=== PATIENT | male | born 1955 | race Caucasian/White ===

== ENCOUNTER → 2025-01-29 | Outpatient (CLI) | payer MEDICARE, BC, SELFPAY ==
[2025-01-29 11:09] LABS: Collection Type, Urine Catheter; Squamous Epithelial Cell,Urine 0 /hpf (0-5)
[2025-01-29 11:52] LABS: Bilirubin,Urine Negative (Negative); Blood,Urine Negative (Negative); Clarity,Urine Clear (Clear/Hazy); Color,Urine Yellow (Lt Yel-Yel); Culture Indicated,Urine Not Indicated; Glucose, Urine Negative (Negative); Ketones,Urine Negative (Negative); Leukocyte Esterase,Urine Negative (Negative); Nitrite,Urine Negative (Negative); Protein,Urine Negative (Neg - Trace); RBC,Urine 2 /hpf (0-3); Specific Gravity,Urine 1.018 (1.001-1.035); Urobilinogen,Urine Negative mg/dL (0.0-1.0); WBC,Urine < 1 /hpf (0-5)
[2025-01-29 11:53] LABS: Basophils % (Auto) 0 % (0-2.5); Eosinophils # (Auto) 0.1 Thou/mm3 (0.0-0.5); Eosinophils % (Auto) 1 % (0-10); Hemoglobin 14.6 g/dL (13.5-16.0); Immature Granulocytes % (Auto) 0 % (0-0); Immature Granulocytes Auto 0.01 Thou/mm3 (0.00-0.00); Lymphocytes # (Auto) 0.8 Thou/mm3 (1.0-4.8); Lymphocytes % (Auto) 17 % (10-50); Mean Corpuscular HGB Conc 37.4 g/dl (31.0-37.0); Mean Corpuscular Hemoglobin 33.9 pg (25.0-35.0); Mean Corpuscular Volume 91 fL (80-100); Monocytes # (Auto) 0.7 Thou/mm3 (0.0-0.8); Monocytes % (Auto) 15 % (0-12); Neutrophils % (Auto) 66 % (37-80); Nucleated Red Blood Cell % 0 /100 WBC (0); Platelet Count 81 Thou/mm3 (140-440); Red Blood Count 4.31 Miln/mm3 (4.50-5.90); White Blood Count 4.6 Thou/mm3 (3.8-10.6)
[2025-01-29 12:14] LABS: Alanine Aminotransferase 48 U/L (10-49); Albumin, Serum 4.2 gm/dL (3.4-4.8); Albumin/Globulin Ratio 1.7 (1.2-2.2); Alkaline Phosphatase 49 U/L (46-116); Anion Gap 12 (7-16); Aspartate Amino Transferase 42 U/L (0-34); BUN/Creatinine Ratio 15 Ratio (12-20); Bilirubin,Total 0.7 mg/dL (0.3-1.2); Blood Urea Nitrogen 19 mg/dL (9-23); Calcium 8.8 mg/dL (8.3-10.6); Calcium (Corrected) 8.8 mg/dL (8.5-10.1); Carbon Dioxide 27.3 mMol/L (20.0-31.0); Cardiac Risk Estimate 3.5 RATIO (4.0-6.7); Chloride 100 mMol/L (98-107); Cholesterol 186 mg/dL (132-200); Creatinine (Component) 1.3 mg/dL (0.6-1.3); Globulin 2.5 gm/dL (2.3-3.5); Glucose 109 mg/dL (74-106); HDL Cholesterol 53 mg/dL (40-60); LDL Cholesterol,Calculated 82 mg/dL (0-130); Osmolality,Calculated 280 (275-295); Potassium 4.1 mMol/L (3.4-5.1); Sodium 139 mMol/L (136-145); Thyroid Stimulating Hormone 2.66 uIU/mL (0.55-4.78); Total Protein 6.7 gm/dL (5.7-8.2); Triglycerides 256 mg/dL (30-150); Vitamin D 25 Hydroxy Total 42.7 ng/mL (7.3-40.2); eGFR 60 See Note
[2025-01-29 12:15] LABS: Prostate Specific Antigen 0.49 ng/mL (0-4.00)
[2025-01-29 12:41] LABS: Glucose Estimated Average 105 mg/dL (80-131); Hemoglobin A1C 5.3 % Hgb (4.8-6.0)
== END | disposition home or self-care (01) ==
PROVIDERS: PCP Family Medicine; Referring Provider Registered Nurse; Visit Provider Registered Nurse
DX: Z00.00 Encounter for general adult medical examination without abnormal findings (principal); I10 Essential (primary) hypertension; E78.2 Mixed hyperlipidemia; N40.1 Benign prostatic hyperplasia with lower urinary tract symptoms
CPT/HCPCS: 36415; 80053; 80061; 81001; 82306; 83036; 84153; 84443; 85025

== ENCOUNTER → 2025-01-29 | Outpatient (CLI) | payer MEDICARE, BC, SELFPAY ==
--- NOTE | 2025-01-29 13:48 | XR_ITS ---
Shoulder bilateral, 6 views Technique: Shoulder AP internal rotation, AP external rotation, Y view each shoulder total 6 views Exam date and time :January 29, 2025 1358 hours INDICATIONS: Bilateral shoulder pain beginning 2018. FINDINGS: Severe osteopenia Bilateral moderate to advanced osteoarthritis glenohumeral joints Right shoulder calcific tendinitis Within the screws right humeral head IMPRESSION: Bilateral moderate to advanced osteoarthritis glenohumeral and acromioclavicular joints Right shoulder calcific tendinitis
== END | disposition home or self-care (01) ==
PROVIDERS: PCP Family Medicine; Referring Provider Registered Nurse; Visit Provider Registered Nurse
DX: M19.012 Primary osteoarthritis, left shoulder (principal); M19.011 Primary osteoarthritis, right shoulder; M75.31 Calcific tendinitis of right shoulder
CPT/HCPCS: 73030

== ENCOUNTER 2025-02-05 06:55 | Emergency (ER) | payer MEDICARE, BC, SELFPAY ==
[2025-02-05] VITALS (38 sets, daily range): BP systolic 75–135; BP diastolic 49–83; PULSE 50–86; RESP 12–25; TEMP 36.8–38; O2SAT 89–99; BMI 35.7
--- NOTE | 2025-02-05 07:16 | EDRME_ITS ---
Rapid Medical Screening Exam [facility] Arrival date/time: 02/05/25 06:55 69-year-old male with a history of hypertension presents to the emergency room with a chief complaint of fevers x 1 week. Patient denies any URI signs or symptoms. Patient denies any abdominal pain chest pain nausea or vomiting. Patient states his only symptom has been a fever and has gotten up to 105.0 patient took Tylenol this morning. I have greeted and performed a focused initial assessment of this patient. A comprehensive ED assessment and evaluation of the patient, analysis of all test results, and completion of the medical decision making process will be conducted by additional ED providers. Chief Complaint: Fever Time Seen by Provider: 02/05/25 07:06 Vital signs: Vital Signs Temperature 100.4 F 02/05/25 07:11 Pulse Rate 86 02/05/25 07:11 Respiratory Rate 20 02/05/25 07:11 Blood Pressure 90/57 L 02/05/25 07:11 Pulse Oximetry (%) 95 02/05/25 07:11 Oxygen Delivery Method Room Air 02/05/25 07:11 Vital signs reviewed by provider: Yes
--- NOTE | 2025-02-05 07:16 | XR_ITS ---
Examination: PA lateral chest 2 views TECHNIQUE: Upright PA lateral chest 2 views Date and time: February 05, 2025 0902 hours Comparison March 22, 2018 INDICATIONS: Coughing chest pain fever beginning one week ago FINDINGS: Atelectasis versus early pneumonia left base Right lung clear Normal heart size IMPRESSION: Atelectasis versus pneumonia left base, clinical correlation advised
[2025-02-05] MEDS: IBUPROFEN TAB 600 MG TABLET PO (07:26)
[2025-02-05 07:55] LABS: Lactate (Lactic Acid) 2.4 mMol/L (0.4-2.0)
[2025-02-05 07:58] LABS: Basophils % (Auto) 1 % (0-2.5); Eosinophils % (Auto) 1 % (0-10); Hematocrit 35.5 % (41.0-53.0); Immature Granulocytes % (Auto) 0 % (0-0); Immature Granulocytes Auto 0.01 Thou/mm3 (0.00-0.00); Lymphocytes # (Auto) 0.7 Thou/mm3 (1.0-4.8); Lymphocytes % (Auto) 12 % (10-50); Mean Corpuscular HGB Conc 36.6 g/dl (31.0-37.0); Mean Corpuscular Hemoglobin 33.2 pg (25.0-35.0); Mean Corpuscular Volume 91 fL (80-100); Monocytes # (Auto) 0.7 Thou/mm3 (0.0-0.8); Monocytes % (Auto) 12 % (0-12); Neutrophils # (Auto) 4.5 Thou/mm3 (1.8-7.7); Neutrophils % (Auto) 75 % (37-80); Nucleated Red Blood Cell % 0 /100 WBC (0); RDW Standard Deviation 41.6 fL (35.1-43.9); Red Blood Count 3.92 Miln/mm3 (4.50-5.90)
[2025-02-05 08:15] LABS: Platelet Count 66 Thou/mm3 (140-440)
[2025-02-05 08:19] LABS: Slide Review Platelets confirmed
--- NOTE | 2025-02-05 08:19 | EDNOTE_ITS ---
ED Fever RME/HPI General Chief Complaint: Fever Stated Complaint: FEVER Time Seen by Provider: 02/05/25 07:06 Arrival date/time: 02/05/25 06:55 RME / HPI RME / HPI Narrative: 02/05/25 06:55 69-year-old male with a history of hypertension presents to the emergency room with a chief complaint of fevers x 1 week. Patient denies any URI signs or symptoms. Patient denies any abdominal pain chest pain nausea or vomiting. Patient states his only symptom has been a fever and has gotten up to 105.0 patient took Tylenol this morning. I have greeted and performed a focused initial assessment of this patient. A comprehensive ED assessment and evaluation of the patient, analysis of all test results, and completion of the medical decision making process will be conducted by additional ED providers. DR. LICHA FUENTES ED EVALUATION: 69 year old male presents to the Emergency Department with complaint of fever onset 1 week with associated diaphoresis. Symptoms are moderate. Patient states he has been taking Tylenol for his fever. Other associated symptoms include feeling generalized weakness. Patient denies any chest pain, coughing or sore throat. No sick contacts at home. No abdominal pain, nausea, or vomiting. No decreased in appetite. PMHx: Hypertension, has lidocaine patches for shoulder pain, colorectal cancer in remission since 2008 with colon resection at [facility] and has both chemotherapy and radiation. Social Hx: No tobacco, alcohol, or substance use. Related Data Previous Rx's ?Medication ?Instructions ?Recorded Morphine Sulfate * (MORPHINE 15 mg PO Q6H PRN PAIN (SE GIA) #20 04/14/17 SULFATE *) tabs naloxone 4 mg/actuation nasal 1 spray intranasal Q1MIN PRN 04/04/19 spray (Narcan) opioid overdose #4 ea amoxicillin 875 mg-potassium 1 tab PO Q12H 10 days #20 tabs 02/05/25 clavulanate 125 mg tablet Allergies Allergy/AdvReac Type Severity Reaction Status Date / Time No Known Allergies Allergy Verified 02/05/25 06:58 Review of Systems Review of Systems Systems Reviewed: All systems reviewed, normal except as documented Narrative Review of Systems: GEN: + fever, no chills, no weight loss, + diaphoresis EYES: No discharge, no visual changes, no pain HEENT: No ear pain, no congestion, no sore throat PULM: No shortness of breath, no cough, no congestion CV: No chest pain, no dyspnea on exertion, no palpitations GI: No nausea, no vomiting, no diarrhea, no pain, no constipation : No frequency, no urgency and no dysuria MUSC/SKEL: No joint pain, no back pain SKIN: No rash PSYCH: No hallucinations, no depression HEME/LYMPH: No easy bleeding or bruising tendencies NEURO: + generalized weakness, no headache Past Medical History Past Medical History CARDIAC: Positive Hypercholesterolemia and Hypertension GASTROINTESTINAL: Positive Gastroesophageal Reflux Disease MUSCULOSKELETAL: Positive Arthritis and Fractures ENT: Positive Glaucoma PSYCHO/SOCIAL: Positive Depression and Anxiety Social History SMOKING STATUS: Former smoker SUBSTANCE USE: does not use ALCOHOL: Never Physical Exam Narrative Physical exam: GENERAL APPEARANCE: AxOx4, generally well-appearing, no acute distress, diaphoretic HEENT: NC, AT. MMM. EOMI, clear conjunctiva, oropharynx clear. NECK: Supple without lymphadenopathy. No stiffness or restricted ROM. HEART: Normal rate and regular rhythm, normal S1/S1, no m/r/g LUNGS: CTAB, moving air well. No crackles or wheezes are heard. ABDOMEN: Soft, nontender, nondistended with good bowel sounds heard. BACK: No midline C/T/L spine pain or deformity, No CVAT, no obvious deformity. EXTREMITIES: Without cyanosis, clubbing or edema. MUSCULOSKELETAL: FROM of all major joints, no chest tenderness NEUROLOGICAL: Grossly nonfocal. Alert and oriented, moving all 4 extremities. CN not formally tested but appear grossly intact. Skin: Warm and dry without any rash. Course Quality Measures none Orders Category Date Time Status Bedside COVID-19 Antigen Test NOW Care 02/05/25 07:16 Completed Bedside Influenza A&B Antigen Test NOW Care 02/05/25 07:16 Completed US gall bladder Stat Exams 02/05/25 09:16 Completed XR chest 2V Stat Exams 02/05/25 07:16 Completed Blood Culture (Lab) Stat Lab 02/05/25 08:09 Received CBC Stat Lab 02/05/25 07:48 Completed CMP [Comprehensive Metabolic Panel] Stat Lab 02/05/25 07:48 Completed Lactate (Lactic Acid) Stat Lab 02/05/25 07:48 Completed Lactic Acid, 3 HR Stat Lab 02/05/25 11:09 Completed Procalcitonin Stat Lab 02/05/25 07:48 Completed UA [Urinalysis] Stat Lab 02/05/25 09:27 Completed Urine Culture Stat Lab 02/05/25 09:27 Received Ibuprofen Tab [Motrin Tab] Med 02/05/25 07:16 Discontinued 600 mg PO X1 ONE Sodium Chloride 0.9% 1000 ml [Ns] 1,000 ml Med 02/05/25 08:18 Discontinued IV 999 mls/hr Sodium Chloride 0.9% 1000 ml [Ns] 1,000 ml Med 02/05/25 09:55 Discontinued IV 999 mls/hr Reevaluation(s) Reevaluation #1: Patient feels better now, he will follow as an outpatient for pneumonia. He is hungry, so after he eats he will do a road test and then be discharged. Time: 13:30 Reevaluation #2: Patient feels better and would like to go home. Road test passed after eating. I confirmed with the patient and he denies any chest pain or cough. Patient remains clinically stable throughout the emergency department visit. Re- assessment at the time of disposition demonstrates that the patient is in no acute distress. We reviewed all the results, analysis, and treatment plans. Patient is amenable to discharge. Strict return precautions were outlined. Clive foster was discharged in stable condition. Time: 14:30 Vital Signs Vital signs: Vital Signs Temperature 100.4 F 02/05/25 07:11 Pulse Rate 86 02/05/25 07:11 Respiratory Rate 20 02/05/25 07:11 Blood Pressure 90/57 L 02/05/25 07:11 Pulse Oximetry (%) 95 02/05/25 07:11 Oxygen Delivery Method Room Air 02/05/25 07:11 Fever MDM Narrative MDM Narrative:: ITamera am scribing for and in the presence of Dr. Staley. Patient data External records reviewed:: [facility] previous records (Reviewed last ED visit dated 04/04/19, discharged with the following: Acute hypokalemia) Clinical information provided by:: patient and spouse Social determinants that could affect healthcare access:: none Patient has the following chronic illnesses:: Hypertension, has lidocaine patches for shoulder pain, colorectal cancer in remission since 2008 with colon resection at [facility] and has both chemotherapy and radiation. How is presenting disease/condition affected by chronic disease/condition?: uneffected by Evaluation data The following diagnostics were reviewed and interpreted by me:: lab results and radiology exam(s) Lab and/or radiology exams considered but not ordered:: none Interpretation Summary: Procedure(s): XR chest 2V Accession Number(s): [id number] cc: Jeff Cevallos; Daniele Phan MD; Zena Billings NP~ Examination: PA lateral chest 2 views TECHNIQUE: Upright PA lateral chest 2 views Date and time: February 05, 2025 0902 hours Comparison March 22, 2018 INDICATIONS: Coughing chest pain fever beginning one week ago FINDINGS: Atelectasis versus early pneumonia left base Right lung clear Normal heart size IMPRESSION: Atelectasis versus pneumonia left base, clinical correlation advised Dictated By: Daniele Phan MD -- Procedure(s): US gall bladder Accession Number(s): [id number] cc: Feliciano Staley MD; Daniele Phan MD; Zena Patel NP~ Examination: Abdomen sonogram, Limited Date and time of exam: February 05, 2025 1251 hours INDICATIONS: Onset abdominal pain and fever beginning one week ago Technique: Real-time lópez scale transabdominal sonographic images of the upper abdomen obtained. Findings: 9 mm gallstone Gallbladder wall 0.3 cm no edema Common bile duct 0.6 cm no stones Pancreatic head prominent 3.7 cm Liver 21 cm fatty infiltration lobular contour Normal hepatopedal portal venous flow Patent IVC IMPRESSION: Cholelithiasis, negative for cholecystitis Pancreatic head measures prominent, 3.7 cm, clinical correlation advised Dictated By: Daniele Phan MD Medications / Prescriptions Medications or Prescriptions considered but not ordered:: none Medication administrations:: Medication Administration History Discontinued Medications Sodium Chloride (Ns) 1,000 mls @ 999 mls/hr IV .Q1H1M ONE Stop: 02/05/25 09:18 Last Infusion: 02/05/25 09:09 Dose: Infused Documented By: Admin: 02/05/25 08:30 Dose: 999 mls/hr Documented By: FAMILIA Sodium Chloride (Ns) 1,000 mls @ 999 mls/hr IV .Q1H1M ONE Stop: 02/05/25 10:55 Last Infusion: 02/05/25 12:11 Dose: Infused Documented By: Admin: 02/05/25 11:08 Dose: 999 mls/hr Documented By: SARAH Ibuprofen (Ibuprofen Tab 600 Mg Tablet) 600 mg PO X1 ONE Stop: 02/05/25 07:17 Last Admin: 02/05/25 07:26 Dose: 600 mg Documented By: DO see above Consultations Consultation(s) initiated? (list below): Yes Consultation #1 (Physician, Specialty, Details): Discussed test HPI, PMHx, lab, radiology results and/or management with Dr. Camargo. Patient can follow as an outpatient for pneumonia. Time: 13:30 Diagnosis Fever Differential Diagnosis: community acquired pneumonia, viral infection, sepsis and influenza Most likely diagnosis given after review of the tests above:: Pneumonia Dehydration Admission Indicated Admission indicated?: not indicated Admission Request Was there a request for admission?: No Disposition Plan Disposition Plan: Discharge Discharge Attestation Discharge Attestation: The patient and all family members were given an opportunity to ask questions and understood the discharge instructions. Discharge instructions specifically effects, indications for sooner follow up or return to the emergency department, and the expected course of current diagnosis. Patient condition: Stable Discharge Plan Plan Patient Disposition: HOME (Self Care) Prescriptions/Referrals Prescriptions/Med Rec: New amoxicillin-pot clavulanate 875-125 mg tablet 1 tab PO Q12H 10 Days Qty: 20 0RF No Action Morphine Sulfate * (MORPHINE SULFATE *) 15 MG tablet 15 mg PO Q6H PRN (Reason: PAIN (SEVERE)) Qty: 20 0RF Narcan 4 mg/actuation spray,non-aerosol 1 spray INTRANASAL Q1MIN PRN (Reason: opioid overdose) Qty: 4 1RF Rx Instructions: adm. 1 dose into ONE nostril; alternate nostrils w each dose until assist arrives Referrals: Zena Lubin NP [Primary Care Provider] - In 1 week Problem List Clinical Impression: Pneumonia, Dehydration Patient/Caregiver Discharge Instructions Education Materials: ED Dehydration (Adult), ED Pneumonia (Adult) Additional Instructions: Hold your blood pressure medicines for the next 2 days. Drink plenty of fluids and get plenty of rest. Follow-up with your primary doctor in 3 to 5 days for recheck. You can return to the emergency department sooner if symptoms worsen or if you notice any new, concerning issues. Print Language: Gabonese Stand Alone Forms: Antonella Award Info., Patient Portal Info Letter
[2025-02-05] MEDS: SODIUM CHLORIDE 0.9% 1000 ML 1,000 ML 999 ML IV ×2 (08:30→11:08)
[2025-02-05 08:35] LABS: Alanine Aminotransferase 76 U/L (10-49); Albumin/Globulin Ratio 1.4 (1.2-2.2); Alkaline Phosphatase 60 U/L (46-116); Anion Gap 13 (7-16); Aspartate Amino Transferase 60 U/L (0-34); BUN/Creatinine Ratio 17 Ratio (12-20); Bilirubin,Total 1.3 mg/dL (0.3-1.2); Blood Urea Nitrogen 32 mg/dL (9-23); Calcium 8.5 mg/dL (8.3-10.6); Calcium (Corrected) 8.5 mg/dL (8.5-10.1); Carbon Dioxide 25.5 mMol/L (20.0-31.0); Chloride 98 mMol/L (98-107); Creatinine (Component) 1.9 mg/dL (0.6-1.3); Globulin 2.9 gm/dL (2.3-3.5); Glucose 121 mg/dL (74-106); Osmolality,Calculated 279 (275-295); Potassium 3.6 mMol/L (3.4-5.1); Procalcitonin 3.67 ng/ml (0.0-0.49); Sodium 136 mMol/L (136-145); Total Protein 6.9 gm/dL (5.7-8.2); eGFR 38 See Note
--- NOTE | 2025-02-05 09:16 | XR_ITS ---
Examination: Abdomen sonogram, Limited Date and time of exam: February 05, 2025 1251 hours INDICATIONS: Onset abdominal pain and fever beginning one week ago Technique: Real-time lópez scale transabdominal sonographic images of the upper abdomen obtained. Findings: 9 mm gallstone Gallbladder wall 0.3 cm no edema Common bile duct 0.6 cm no stones Pancreatic head prominent 3.7 cm Liver 21 cm fatty infiltration lobular contour Normal hepatopedal portal venous flow Patent IVC IMPRESSION: Cholelithiasis, negative for cholecystitis Pancreatic head measures prominent, 3.7 cm, clinical correlation advised
[2025-02-05 09:43] LABS: Collection Type, Urine Clean Catch
[2025-02-05 10:15] LABS: Bilirubin,Urine Negative (Negative); Blood,Urine Negative (Negative); Color,Urine Yellow (Lt Yel-Yel); Glucose, Urine Negative (Negative); Hyaline Casts,Urine < 1 /hpf (0-1); Ketones,Urine Negative (Negative); Leukocyte Esterase,Urine Negative (Negative); Nitrite,Urine Negative (Negative); PH,Urine 5.5 (5.0-7.0); Protein,Urine Trace (Neg - Trace); RBC,Urine 1 /hpf (0-3); Squamous Epithelial Cell,Urine < 1 /hpf (0-5); Urobilinogen,Urine Negative mg/dL (0.0-1.0); WBC,Urine 1 /hpf (0-5)
[2025-02-05 10:31] LABS: Clarity,Urine Hazy (Clear/Hazy)
[2025-02-05 10:52] LABS: Reflex Lactate? Y
[2025-02-05 11:19] LABS: Lactic Acid, 3 HR 0.9 mMol/L (0.4-2.0)
== END 2025-02-05 15:18 | disposition home or self-care (01) ==
PROVIDERS: Nurse Practitioner Family; Emergency Provider Emergency Medicine; PCP Registered Nurse
DX: J18.9 Pneumonia, unspecified organism (principal); E86.0 Dehydration; K80.20 Calculus of gallbladder without cholecystitis without obstruction; Z87.891 Personal history of nicotine dependence
CPT/HCPCS: 36415; 71046; 76705; 80053; 81001; 83605; 84145; 85025; 87040; 87086; 87400; 87811; 96360; 99284; J7030; A9270

== ENCOUNTER → 2025-05-11 | Outpatient (CLI) | payer MEDICARE, BC, SELFPAY ==
--- NOTE | 2025-05-11 13:41 | EKG_ITS ---
[facility] Test Date: 2025-05-11 Pat Name: JOAN GREENBERG Department: Room: - Gender: Male Director [employer]: : 1955 Requested By: Eddy Wolfe Order Number: [id number] Reading MD: Eddy Wolfe Measurements Intervals [place] Rate: 62 P: 34 MS: 199 QRS: -16 QRSD: 91 T: 29 QT: 414 QTc: 422 Interpretive Statements SINUS RHYTHM MODERATE VOLTAGE CRITERIA FOR LVH, CONSIDER NORMAL VARIANT [MEETS CRITERIA IN ONE OF: R(aVL), S(V1), R(V5), R(V5/V6)+S(V1)] Compared to ECG 04/04/2019 19:02:38 First degree AV block no longer present Myocardial infarct finding no longer present /store/[id number].pdf
[2025-05-11 14:54] LABS: Basophils # (Auto) 0.0 Thou/mm3 (0.0-0.2); Basophils % (Auto) 1 % (0-2.5); Eosinophils # (Auto) 0.2 Thou/mm3 (0.0-0.5); Eosinophils % (Auto) 4 % (0-10); Hematocrit 43.2 % (41.0-53.0); Hemoglobin 14.8 g/dL (13.5-16.0); Immature Granulocytes Auto 0.01 Thou/mm3 (0.00-0.00); Lymphocytes # (Auto) 1.9 Thou/mm3 (1.0-4.8); Lymphocytes % (Auto) 30 % (10-50); Mean Corpuscular HGB Conc 34.3 g/dl (31.0-37.0); Mean Corpuscular Hemoglobin 31.6 pg (25.0-35.0); Mean Corpuscular Volume 92 fL (80-100); Monocytes # (Auto) 0.8 Thou/mm3 (0.0-0.8); Monocytes % (Auto) 13 % (0-12); Neutrophils # (Auto) 3.4 Thou/mm3 (1.8-7.7); Neutrophils % (Auto) 53 % (37-80); Nucleated Red Blood Cell # 0.00 Thou/mm3 (0.00-0.00); Nucleated Red Blood Cell % 0 /100 WBC (0); Platelet Count 121 Thou/mm3 (140-440); RDW Standard Deviation 44.0 fL (35.1-43.9); Red Blood Count 4.69 Miln/mm3 (4.50-5.90); White Blood Count 6.4 Thou/mm3 (3.8-10.6)
[2025-05-11 15:03] LABS: INR 1.0 (0.9-1.3); Prothrombin Time 11.2 Seconds (9.0-12.2)
[2025-05-11 15:13] LABS: Albumin, Serum 4.7 gm/dL (3.4-4.8); Anion Gap 11 (7-16); BUN/Creatinine Ratio 12 Ratio (12-20); Blood Urea Nitrogen 15 mg/dL (9-23); Calcium 9.9 mg/dL (8.3-10.6); Calcium (Corrected) 9.9 mg/dL (8.5-10.1); Carbon Dioxide 29.1 mMol/L (20.0-31.0); Chloride 99 mMol/L (98-107); Creatinine (Component) 1.3 mg/dL (0.6-1.3); Glucose 89 mg/dL (74-106); Osmolality,Calculated 277 (275-295); Phosphorous 3.4 mg/dL (2.4-5.1); Potassium 3.8 mMol/L (3.4-5.1); Sodium 139 mMol/L (136-145); eGFR 60 See Note
== END | disposition home or self-care (01) ==
PROVIDERS: PCP Family Medicine
DX: Z01.89 Encounter for other specified special examinations (principal)
CPT/HCPCS: 36415; 80069; 85025; 85610; 93005